=== PATIENT | female | born 1975 | race Two or more races ===

== ENCOUNTER 2023-10-05 02:39 | Emergency (ER) | payer MEDICAID | END 2023-10-05 03:24 | disposition left against medical advice (07) | LOC: EMS 02:39 | DX: Z53.21 Procedure and treatment not carried out due to patient leaving prior to being seen by health care provider (principal) ==

== ENCOUNTER 2023-10-05 03:14 | Emergency (ER) | payer MEDICAID | END 2023-10-05 03:32 | disposition left against medical advice (07) | LOC: EMS 03:15 | DX: Z53.21 Procedure and treatment not carried out due to patient leaving prior to being seen by health care provider (principal) ==